=== PATIENT | female | born 1955 | race Caucasian/White ===

== ENCOUNTER 2019-06-02 09:41 | Outpatient (CLI) | payer MEDICARE ==
--- NOTE | 2019-06-02 11:46 | PET ---
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 Evaluation was performed on a [employer] workstation. FINDINGS: NECK: No areas of hypermetabolic activity CHEST: No areas of hypermetabolic activity. A stable reticulonodular pattern is seen in the lungs. Th e previously seen hypermetabolic activity along the pleura in the left thorax has resolved. ABDOMEN/PELVIS: Approximately 4-5 right liver masses are again seen with a max SUV value of 4.7. SKELETON: Diffuse hypermetabolic osseous metastases are seen. There are also numerous sclerotic lesio ns throughout the skeleton. These are seen within the bones of the pelvis, ribs, right clavicle, right humerus, right femur, and bilateral scapula. CT images used for attenuation correction show the patient is status post left mastectomy. There is a right-sided Mediport with its tip in the superior vena cava. There is a small right pleural effusion. Scattered diverticula are seen in the colon. Patient has a left hip prosthesis. IMPRESSION: 1. Diffuse osseous metastatic disease 2. Slight improvement in metastatic disease in the liver 3. Resolution of hypermetabolic activity within the chest.
== END 2019-06-02 09:42 | disposition home or self-care (01) ==
LOC: PET 09:41
PROVIDERS: ATTEND Internal Medicine Hematology & Oncology
DX: C50.412 Malignant neoplasm of upper-outer quadrant of left female breast (principal); C78.02 Secondary malignant neoplasm of left lung; C79.51 Secondary malignant neoplasm of bone; C78.7 Secondary malignant neoplasm of liver and intrahepatic bile duct
CPT/HCPCS: 78815; A9552